=== PATIENT | male | born 1975 | race Caucasian/White ===

== ENCOUNTER 2018-11-09 23:00 | Emergency (ER) | payer SELFPAY ==
[~2018-11-09] VITALS: Ht 165.1 cm; Wt 95.3 kg
[2018-11-09 23:09] VITALS: Ht 165.1 cm; Wt 95.3 kg
[2018-11-10] MEDS ORDERED: LORAZEPAM 1 MG TAB PO ONE ×2 (00:30→01:30)
--- NOTE | 2018-11-10 00:54 | PSY ---
Date/Time of Note Date/Time of Note DATE: 11/10/18 TIME: 00:42 Psychiatric Subjective Eval Consent Pt consented to telemedicine: Yes Subjective Evaluation Patient location: emergency Chief Complaint: STATES USED CRYSTAL METH FEW HRS AGO, FEELS PARANOID AND OUT OF HIS MIND Allergies: Coded Allergies: No Known Allergy (Unverified , 11/09/18) Assessment and Plan Recommendation/Plan Discharge Disposition: Community Legal Status: Voluntary Assessment Additional comments: IDENTIFYING INFORMATION: 43 year old Male patient who is currently located at the hospital and for whom psychiatric consultation was requested. SOURCES OF INFORMATION: The patient who appears to be reliable and the medical records; the nursing staff. Step-brother, Michael Mooney, was called at [phone] at 12:53 am. He appears to be reliable. CHIEF COMPLAINT: "my drug use has worsened". HISTORY OF PRESENT ILLNESS: The patient was interviewed via telemedicine in the presence of and under the supervision of nursing staff of the hospital. The consent to conducting this interview via telemedicine was obtained by the nursing staff at the hospital. RN Ruth Ann reports that the patient presented with meth intoxication and paranoia. Denies having SI, HI. Is not on a 5150 hold. The patient reports having paranoia lately in the context of using meth. Reports that he feels fine now, does not feel that someone is after him anymore. They with his and he is depressed about that. Admits to having transient VH lately. Admits to insomnia, low appetite. The patient denies having HI, SI, persistent depression, anhedonia. The patient reports drinking 18-24 drinks per day. Last drink was a few hours ago. + tremors. The patient denies having a history of alcohol withdrawal-induced seizures, delirium tremens, visual hallucinations, and denies having alcohol withdrawal- related hospitalizations. The patient reports using cocaine almost daily. Last use was earlier today. The patient reports using meth daily lately. Last use was today. The patient denies using any other substances. Brother denies the pt having SI, HI. Brother reports that the pt has had AH, VH, paranoid delusions. In terms of past psychiatric history, the patient reports having a history of no past psychiatric hospitalizations. The patient reports having a history of no past suicide attempts. Past medication trials: none. PAST MEDICAL HISTORY: none. CURRENT MEDICATIONS: none. ALLERGIES TO MEDICATIONS: NKDA. LABORATORY TESTS: pending. SOCIAL HISTORY: lives with brother, but , has 1 child and has lost one 5 yo child, 9th grade education; employed as a labor worker; no access to firearms. REVIEW OF SYSTEMS: Constitutional (e.g., fever, weight loss): negative; Eyes, Ears, Nose, Mouth, Throat: negative; Cardiovascular: negative; Respiratory: negative; Gastrointestinal: negative; Genitourinary: negative; Musculoskeletal: negative; Integumentary (skin and/or breast): negative; Neurological: negative; Psychiatric: as per HPI; Endocrine: negative; Hematologic/Lymphatic: negative; Allergic/Immunologic: negative. MENTAL STATUS EXAMINATION: General Appearance and Behavior: Calm, cooperative with the interview, pleasant with the current interviewer, makes fair eye contact, fairly groomed, no abnormal movements noted, Speech: Regular rate, regular rhythm, normal latency, normal volume, somewhat decreased amount, Flow of thought: sequential, logical, goal-directed, Content of thought: no auditory hallucinations, no visual hallucinations, + transient paranoid delusions, negative for suicidal ideation; no homicidal ideation, Mood: "depressed", Affect: dysthymic, reactive, Attention: normal based on the interview, Insight: fair, Judgment: poor, Memory: normal based on the interview, Sensorium: alert and oriented to person, place and date. ASSESSMENT: The patient's presentation and history are consistent with the diagnosis of unspecified psychotic disorder, cocaine use disorder, stimulant use disorder, alcohol use disorder. The patient presents with transient depressive and psychotic symptoms in the context of psychosocial stressors and substance use. The psychotic symptoms have improved significantly since the patient has been at the emergency room. This points to the direction of substance-induced psychosis diagnostically rather than substance related psychotic illnesses such as schizophrenia. PLAN: - Medication management: Would recommend starting alcohol withdrawal protocol per [facility] while the patient is at the emergency room. Would also consider administering thiamine, folic acid, multivitamin. Would start risperidone 0.5 mg by mouth twice a day. Risks, benefits, alternatives discussed in detail, and the patient provided informed consent to proceed with this plan. - Labs: Please check CBC, CMP, Alcohol level, UDS. - Psychotherapy: Provided supportive psychotherapy and psychoeducation. - Disposition: Would defer to the emergency room physician the decision of whether admission to the inpatient medical floor is required for alcohol detox. If the patient's alcohol level is above the legal limit, then please reconsult psychiatry to determine disposition once the patient's alcohol level is below the legal limit. If the patient's alcohol level comes back below the legal limit, then the patient is appropriate for the outpatient level of care at this time from a psychiatric perspective. The patient is not an imminent danger to self or others. The patient is motivated for outpatient treatment. The patient agrees to be compliant with outpatient follow-up appointments and pharmacotherapy as indicated. Would recommend that the patient follows up with a psychiatrist. Re sources for outpatient follow-up will be provided by the hospital staff. The patient's risk for completed suicide is moderate to high in comparison to the general population. Risk factors include gender, substance use disorder, psychotic symptoms. Protective factors include race, age, absence of schizophrenia, bipolar disorder, major depressive disorder, anxiety disorder, personality disorder, no access to firearms, access to care, supportive family, no major chronic medical problems. The patient's risk for completed suicide cannot be modified more effectively with inpatient admission at this time. The patient is not an imminent danger to self or others at this time and does not meet the legal criteria for involuntary admission. Risks, benefits, alternatives were discussed and the patient provided informed consent to proceed with the above plan. Please provide local resources for the treatment of addiction, including outpt and inpt rehabilitation services. Discussed about the above plan with Dr. Weiss. JARROD ANGULO MD Nov 10, 2018 00:52
--- NOTE | 2018-11-10 00:57 | ERD ---
ER Documentation Chief Complaint Chief Complaint STATES USED CRYSTAL METH FEW HRS AGO, FEELS PARANOID AND OUT OF HIS MIND HPI 43-year-old male with a history of chronic cocaine and alcohol use, presenting after 3 days of using methamphetamines, not sleeping well, complaining of paranoia and auditory and possibly visual hallucinations. He wants help. He is denying any suicidal ideations. However he feels that his symptoms are worsening and he needs to get off of drugs. ROS All systems reviewed and are negative except as per history of present illness. Medications Home Meds Active Scripts Risperidone* (Risperidone*) 0.5 Mg Tablet, 0.5 MG PO BID, #14 TAB Prov:JUANITO LOCO MD 11/10/18 Allergies Allergies: Coded Allergies: No Known Allergy (Unverified , 11/09/18) PMhx/Soc History of Surgery: Yes (left middle finger, left wrist, testicular sx) Anesthesia Reaction: No Hx Neurological Disorder: No Hx Respiratory Disorders: No Hx Cardiac Disorders: No Hx Psychiatric Problems: Yes (Anxiety, Depression) Hx Miscellaneous Medical Probl: No Hx Alcohol Use: Yes Hx Substance Use: Yes (Crystal Meth, Cocaine) Hx Tobacco Use: Yes Smoking Status: Current some day smoker FmHx Family History: No diabetes Physical Exam Vitals Vital Signs Date Temp Pulse Resp B/P (MAP) Pulse Ox O2 O2 Flow FiO2 Time Delivery Rate 11/09/18 99.7 126 23 180/111 97 23:09 (134) Physical Exam Const: No acute distress Head: Atraumatic Eyes: Normal Conjunctiva ENT: Normal External Ears, Nose and Mouth. Neck: Full range of motion. No meningismus. Resp: Clear to auscultation bilaterally Cardio: Regular rate and rhythm, no murmurs Abd: Soft, non tender, non distended. Normal bowel sounds Skin: No petechiae or rashes Back: No midline or flank tenderness Ext: No cyanosis, or edema Neur: Awake and alert Psych: Normal Mood and Affect. Normal speech. Good insight. No SI or HI. No active hallucinations Results 24 hrs Laboratory Tests Test 11/10/18 00:40 11/10/18 01:47 Urine Opiates Screen Negative Urine Barbiturates Negative Urine Amphetamines Screen POSITIVE Urine Benzodiazepines Screen Negative Urine Cocaine Screen Positive Urine Cannabinoids Negative Ethyl Alcohol Level < 10.0 mg/dl Current Medications Medications Dose Sig/Regina Start Time Status Last (Trade) Ordered Route PRN Stop Time Admin Dose Reason Admin Lorazepam 1 mg ONCE ONCE 11/10/18 DC (Ativan) PO 00:30 11/10/18 00:32 Risperidone 0.5 mg ONCE ONCE 11/10/18 DC 11/10/18 (Risperdal) PO 01:30 11/10/18 01:46 01:31 Lorazepam 2 mg ONCE ONCE 11/10/18 DC 11/10/18 (Ativan) PO 01:30 11/10/18 01:28 01:31 Procedures/MDM EMERGENT LABS AND DIAGNOSTIC STUDIES: Lab Results above were reviewed and interpreted by me. Urine drug screen: Positive for amphetamines EtOH level within normal limits, no evidence of acute intoxication Initial Nursing notes reviewed. Previous Medical Records requested via the Electronic Health Record. EMERGENCY DEPARTMENT COURSE / MEDICAL DECISION MAKING: Patient presented with complaints of paranoia and hallucinations after drug abuse. He is mentating normally on exam. I do not believe he is intoxicated with alcohol. He was treated with Ativan orally. I do not feel that he is a danger to himself or others. However I did offer him tele-psychiatry evaluation, which he agreed to. Patient was seen by the tele-psychiatrist and starting risperidone was recommended. Outpatient resources were provided for the patient for substance abuse programs and outpatient mental health. He feels comfortable with discharge plan. Return precautions discussed. At this time, patient does not meet criteria for an involuntary hold and I do not believe he needs psychiatric hospitalization emergently. Patient's blood pressure was elevated (>120/80) but appears stable without evidence of hypertensive emergency or urgency. The patient was counseled about the risks of hypertension and urged to pursue outpatient monitoring and therapy within a week with their primary care physician. Departure Diagnosis: Primary Impression: Drug-induced paranoia or hallucinations Additional Impression: Substance abuse Condition: Stable JUANITO LOCO MD Nov 10, 2018 00:57
[2018-11-10] MEDS ORDERED: RISPERIDONE 0.25 MG TAB PO ONE (01:30)
[2018-11-10] MEDS ORDERED: RISP0.5T3 PO (02:33)
[2018-11-10 03:00] VITALS: BP 147/91; PULSE 92; RESP 16
== END 2018-11-10 03:00 | disposition home or self-care (01) ==
LOC: E/R 23:00
DX: F19.951 Other psychoactive substance use, unspecified with psychoactive substance-induced psychotic disorder with hallucinations (principal); F15.10 Other stimulant abuse, uncomplicated; F17.210 Nicotine dependence, cigarettes, uncomplicated; R40.2142 Coma scale, eyes open, spontaneous, at arrival to emergency department; R40.2252 Coma scale, best verbal response, oriented, at arrival to emergency department; R40.2362 Coma scale, best motor response, obeys commands, at arrival to emergency department
CPT/HCPCS: 36415; 80307; 93005